=== PATIENT | female | born 1965 | race Caucasian/White ===

== ENCOUNTER 2024-05-15 10:19 | Outpatient (AMB) | payer BC, SELFPAY ==
--- NOTE | 2024-05-15 10:22 | A.OFFPC_ITS ---
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 Anxiety-she has seen a therapist in the past. On lorazepam 0.5 mg twice daily, received 56 tablets for 28 days. She states this is effective. She has not interested in other medications or therapy at this time. Insomnia-taking zolpidem 6.25 mg extended release. UDS is up-to-date as of 11/28/2023. Varicose veins- she had both legs done in 10/14/[address] Meneses. Patient has been evaluated at [facility] primary care in at the emergency department for palpitations and atypical chest pain. She had an ultrasound of the right upper quadrant at the emergency department on 03/11/2024 which was negative for cholelithiasis. She had a stress echo on 04/23/2024 which was normal. She also had an echocardiogram and Holter monitor that were unrevealing. Palpitations do not happen frequently. She has occasional episodes where she feels like her heart is beating faster, but when she is checked her watch it is normal. The pain is on the right side of her chest. She describes it as mild aching. Tums decrease his symptoms. She says it could be anxiety, but she is not sure. She does get indigestion so she stopped eating spicy foods. She wonders if this could be due to gallbladder. No nausea or vomiting. She tried Prilosec, but she says it did not alleviate symptoms. She does not get exertional symptoms or shortness of breath or dizziness. She is a nonsmoker. She has hyperlipidemia treated with atorvastatin. She also endorses a rash on the right breast for the past 6 months. It started as a small red spot. Now there are 2 patches of rash that are red, scaly and itchy. She is tried some [id number] oils and moisturizers without effect. Denies family history of breast cancer. Last screening mammogram up-to-date and without evidence of breast cancer. She denies palpable masses. 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 How often do you have a drink containing alcohol?: 2-4 times a month (once a week) 2. How many drinks containing alcohol do you have on a typical day when you are drinking?: 1 or 2 3. How often do you have six or more drinks on one occasion?: Never Total Score: 2 Physical exam (Primary Care) Vital Signs: Last Vital Signs Temp 98.8 F 05/15/24 10:31 Pulse 77 05/15/24 10:31 Resp 12 05/15/24 10:31 BP 98/58 L 05/15/24 10:31 Pulse Ox 99 05/15/24 10:31 Oxygen Delivery Method Room Air 05/15/24 10:31 BMI result Body Mass Index 23.3 Tobacco/Smoking Status: Tobacco use Status Tobacco use date assessed 05/15/24 05/15/24 10:31 Patient Tobacco Use Status Never used Tobacco 05/15/24 10:31 e-Cigarette/Vaping Use Never Used 05/15/24 10:31 Const Other: Constitutional: Alert, in no distress. Head: Normocephalic. Eyes: Pupils are equal, round and reactive to light. Extraocular muscles intact. Neck: Supple, Full range of motion. No lymphadenopathy. No palpable thyroid masses. Respiratory: Clear to auscultation. Cardiovascular: S1 S2 regular. No murmurs. Gastrointestinal: Abdomen soft, non-tender, non-distended. Normal bowel sounds. No palpable masses. Neurologic: No focal neurological deficits. Breast: No nipple inversion, axillary adenopathy or palpable masses of either breast. Skin: 3 cm annular erythematous scaly patch and 0.5 cm simliar patch on the inferior right breast. Extremities: Warm and well perfused. No clubbing, cyanosis or edema. Assessment and Plan Assessment & Plan (1) Anxiety: Code(s): F41.9 - Anxiety disorder, unspecified Plan: Stable. Continue current regimen. (2) Palpitations: Code(s): R00.2 - Palpitations Plan: Workup reassuring. May be attributed to stress, anxiety or dehydration. If symptoms worsen or become more frequent I will refer her to Cardiology. (3) Insomnia: Code(s): G47.00 - Insomnia, unspecified Qualifiers: Insomnia type: primary Qualified Code(s): F51.01 - Primary insomnia Plan: Stable. Continue zolpidem 6.25 mg controlled release. (4) Hyperlipidemia: Code(s): E78.5 - Hyperlipidemia, unspecified Qualifiers: Hyperlipidemia type: pure hypercholesterolemia Qualified Code(s): E78.00 - Pure hypercholesterolemia, unspecified Plan: Continue atorvastatin. Check lipid profile. Lifestyle modifications reviewed. (5) Atypical chest pain: Code(s): R07.89 - Other chest pain Plan: Cardiac workup including stress echo, echo, Holter monitor benign. Symptoms nonexertional and are atypical. Could be related to dyspepsia/GERD. We will order H pylori stool antigen testing. Warning signs warranting ER evaluation reviewed. If this is negative consider referral to gastro. (6) Abnormal breast exam: Code(s): N64.59 - Other signs and symptoms in breast Plan: Breast rash on exam that started about 6 months ago. She says her screening mammogram was last fall. Order diagnostic bilateral mammogram and breast ultrasound for further evaluation. Trial of topical Lotrisone. Orders: Orders MM diagnostic mammo BI Today N64.59 - Other signs and symptoms in breast Lipid Panel Today E78.5 - Hyperlipidemia, unspecified, R00.2 - Palpitations, R07.89 - Other chest pain TSH reflex Free T4 Today E66.9 - Obesity, unspecified, E78.5 - Hyperlipidemia, unspecified, R00.2 - Palpitations, R07.89 - Other chest pain Comprehensive Met. Panel Today E78.5 - Hyperlipidemia, unspecified, R00.2 - Palpitations, R07.89 - Other chest pain Complete Blood Count no Diff Today E78.5 - Hyperlipidemia, unspecified, R00.2 - Palpitations, R07.89 - Other chest pain US breast RT limited Today N64.59 - Other signs and symptoms in breast H pylori Ag Stool Today R07.89 - Other chest pain Medications: New clotrimazole-betamethasone 1-0.05 % 1 appl topical BID 2 weeks 45 grams 0RF Coding Level of Care Code Est Pt Level 5 (97637) Complex EM visit Add On G2211 Diagnoses Anxiety F41.9 Palpitations R00.2 Primary insomnia F51.01 Insomnia type: primary Pure hypercholesterolemia E78.00 Hyperlipidemia type: pure hypercholesterolemia Atypical chest pain R07.89 Abnormal breast exam N64.59 Time Spent (min) 45 Comment 45 minutes spent reviewing records, updating the chart and coordinating treatment.
[2024-05-15 10:31] VITALS: BP 98/58; PULSE 77; RESP 12; TEMP 37.1; O2SAT 99; BMI 23.3
== END 2024-05-15 11:36 | disposition home or self-care (01) ==
PROVIDERS: PCP Internal Medicine; Visit Provider Physician Assistant Medical
DX: R00.2 Palpitations (principal); F41.9 Anxiety disorder, unspecified; F51.01 Primary insomnia; E78.00 Pure hypercholesterolemia, unspecified; R07.89 Other chest pain; N64.59 Other signs and symptoms in breast
CPT/HCPCS: 99215

== ENCOUNTER 2024-07-13 07:31 | Outpatient (REF) | payer BC, SELFPAY ==
[2024-07-13 11:51] LABS: Hemoglobin 12.9 g/dl (12.0-16.0); Mean Corpuscular HGB Conc 33.1 g/dl (31.0-35.0); Mean Corpuscular Hemoglobin 28.8 pg (27.0-33.0); Mean Corpuscular Volume 87.1 fL (80.0-98.0); Mean Platelet Volume 10.7 fL (9.4-12.3); Platelet Count 228 X10*3/uL (160-400); Red Blood Count 4.48 X10*6/uL (4.20-5.50); Red Cell Distribution Width 13.9 % (11.0-16.0); White Blood Count 5.5 X10*3/uL (4.8-10.8)
[2024-07-13 12:19] LABS: Alanine Aminotransferase 45 U/L (0-31); Albumin Level 4.3 g/dL (3.5-5.0); Alkaline Phosphatase 69 U/L (39-117); Anion Gap 13 (12-20); Aspartate Amino Transferase 49 U/L (5-31); Bilirubin Total 1.4 mg/dL (0.0-1.0); Blood Urea Nitrogen 13 mg/dL (9-16); Calcium 9.8 mg/dL (8.4-10.2); Carbon Dioxide 27 mmol/L (22-29); Chloride 104 mmol/L (96-108); Cholesterol 204 mg/dL (<200); Estimated Glomerular Filt Rate > 60; Glucose Random 92 mg/dL (60-115); HDL Cholesterol 58 mg/dL (>40); LDL Cholesterol Calculated 97 mg/dL (<100); Potassium 3.9 mmol/L (3.3-5.1); Sodium 140 mmol/L (135-145); Total Protein 7.4 g/dL (6.5-8.0); Triglycerides 245 mg/dL (<150)
[2024-07-13 12:23] LABS: TSH reflex Free T4 1.16 uIU/mL (0.32-4.0)
== END 2024-07-13 07:32 | disposition home or self-care (01) ==
LOC: HO.WFDLDS 07:31
PROVIDERS: Visit Provider Physician Assistant Medical
DX: R07.89 Other chest pain (principal); R00.2 Palpitations; E78.5 Hyperlipidemia, unspecified; E66.9 Obesity, unspecified; R10.2 Pelvic and perineal pain
CPT/HCPCS: 36415; 80053; 80061; 84443; 85027; 87086

== ENCOUNTER 2024-07-13 13:40 | Outpatient (AMB) | payer BC, SELFPAY ==
--- NOTE | 2024-07-13 13:42 | A.OFFPC_ITS ---
Vital Signs 07/13/24 13:48 Height 5 ft 1.18 in Weight 128 lb 8 oz BMI 24.1 BP 108/78 Blood Pressure Location Rt brachial Position Sitting Pulse 70 Pulse Source Pulse Oximeter Temp 98.1 F Temp Source Oral Pulse Oximetry (%) 99 Oxygen Delivery Method Room Air Intake Visit Reasons: Left sided pain Intake Note: Left sided pain. Allergies doxycline Allergy (Severe, Uncoded 07/13/24 13:47) flushed Tobacco use date assessed: 05/15/24 Dental Screening Dental Screen Date: 05/15/24 HPI HPI Comments History of Present Illness Details This is a 58-year-old female with a past medical history of palpitations, atypical chest pain, hyperlipidemia, insomnia and anxiety presenting for back pain. She endorses left low back x 1 month. Reproducible with flexion, twisting, laying supine. It is 10/10 at worst. Better with heat. Resolves temporarily with Ibuprofen. No trauma. The patient had blood work done today. CBC, electrolytes, renal function, glucose normal. Total bilirubin, AST and ALT elevated at 1.4, 49 and 45 respectively. Started Atorvastatin just over 3 months ago. No right sided abdominal pain, nausea or vomiting. No history of liver disease. Alkaline phos within normal limits. LDL 97, total cholesterol 204, triglycerides 245, HDL 58. TSH normal. H pylori stool testing still pending. She has the kit now. I ordered diagnostic breast imaging at her last visit due to an ongoing rash (see prior note). The orders were sent to [facility] per her request. She will call to schedule. Still has breast rash. He denies urinary frequency, hematuria and dysuria. Urine dip +leuks and +protein.. She has occasional pelvic pressure. ROS: Constitutional: No unexplained weight loss, fever, chills, fatigue or night sweats. Respiratory: No shortness of breath Cardiovascular: No chest pain Gastrointestinal: No anorexia, nausea, vomiting or diarrhea. Genitourinary: No dysuria, hematuria, urinary frequency. Neurologic: No headache, dizziness, syncope Skin: No rash Physical exam: Constitutional: Alert, in no distress. Head: Normocephalic. Eyes: Anicteric Neck: Supple, Full range of motion. No lymphadenopathy. Respiratory: Clear to auscultation. Cardiovascular: S1 S2 regular. No murmurs Gastrointestinal: Abdomen soft, non-tender, non-distended. Normal bowel sounds. No palpable masses. No rebound or guarding. Genitourinary: No costovertebral angle tenderness. Skin: No rashes or lesions. Musculoskeletal: Right sided lumbosacral pain reproduced with flexion, twisting and right lateral bending. No midline spinal tenderness. No palpable masses. Normal gait. Negative straight leg raises. Symmetric lower extremity reflexes. Extremities: Warm and well perfused. No clubbing, cyanosis or edema. 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 Current occupational exposures/hazards: No Cognitive needs: No Hearing needs: No Vision needs: Yes (glasses) Physical exam (Primary Care) Vital Signs: Last Vital Signs Temp 98.1 F 07/13/24 13:48 Pulse 70 07/13/24 13:48 BP 108/78 07/13/24 13:48 Pulse Ox 99 07/13/24 13:48 Oxygen Delivery Method Room Air 07/13/24 13:48 BMI result Body Mass Index 24.1 Tobacco/Smoking Status: Tobacco use Status Tobacco use date assessed 05/15/24 07/13/24 13:43 Patient Tobacco Use Status Never used Tobacco 07/13/24 13:43 e-Cigarette/Vaping Use Never Used 07/13/24 13:43 Results AMB Urinalysis Dipstick UR Leukocytes Medium Last Edit by Sybil Payne CMA on 07/13/24 14:01 UR Nitrite Negative Last Edit by Sybil Payen CMA on 07/13/24 14:01 UR Urobilinogen Normal Last Edit by Sybil Payne CMA on 07/13/24 14:01 UR Protein Trace Last Edit by Sybil Payne CMA on 07/13/24 14:01 UR Ph 6.0 Last Edit by Sybil Payne CMA on 07/13/24 14:01 UR Blood Negative Last Edit by Sybil Payne CMA on 07/13/24 14:01 UR Specific Francisco 1.015 Last Edit by Sybil Payne CMA on 07/13/24 14: 01 UR Ketone Negative Last Edit by Sybil Payne CMA on 07/13/24 14:01 UR Bilirubin Negative Last Edit by Sybil Payne CMA on 07/13/24 14:01 UR Glucose Negative Last Edit by Sybil Payne CMA on 07/13/24 14:01 Results Reviewed Results Reviewed: Laboratory Last Values Urine pH (Clinic) 6.0 07/13/24 13:52 Specific Francisco (Clinic) 1.015 07/13/24 13:52 Ur Protein (Clinic) Trace 07/13/24 13:52 Ur Ketones (Clinic) Negative 07/13/24 13:52 Urine Blood (Clinic) Negative 07/13/24 13:52 Urine Nitrite Negative 07/13/24 13:52 Urine Bilirubin (Clinic) Negative 07/13/24 13:52 Urobilinogen (Clinic) Normal 07/13/24 13:52 Leukocyte Esterase (Clinic) Medium 07/13/24 13:52 Urine Glucose (Clinic) Negative 07/13/24 13:52 Assessment and Plan Assessment & Plan (1) Right low back pain: Code(s): M54.50 - Low back pain, unspecified Qualifiers: Chronicity: acute Sciatica presence: without sciatica Qualified Code(s): M54.50 - Low back pain, unspecified Plan: The pain is reproducible on exam. This is likely musculoskeletal in nature. No neurologic red flags. No symptoms aside from occasional pelvic pressure. Urine dip equivocal. Sent for culture. Warning signs warranting ER evaluation reviewed. Trial of cyclobenzaprine 5-10 mg nightly with ibuprofen 600 mg every 8 hours. Caution muscle relaxant can be sedating and cause drowsiness. She should not drive or operate heavy machinery when she takes it. Side effects of ibuprofen reviewed. Take with food. If symptoms persist we can proceed with x-ray of lumbar spine and SI joint. (2) Abnormal breast exam: Code(s): N64.59 - Other signs and symptoms in breast Plan: Patient will call [facility] to schedule diagnostic imaging. (3) Hyperlipidemia: Code(s): E78.5 - Hyperlipidemia, unspecified Qualifiers: Hyperlipidemia type: pure hypercholesterolemia Qualified Code(s): E78.00 - Pure hypercholesterolemia, unspecified Plan: Patient will hold atorvastatin due to elevated LFTs which is new since starting medication. Continue lifestyle modifications for hyperlipidemia. Repeat labs in 1 months time. (4) Elevated LFTs: Code(s): R79.89 - Other specified abnormal findings of blood chemistry Plan: If LFTs do not normalize after stopping statin will proceed with testing for hepatitis and possibly abdominal imaging. Plan Follow-up in 5 weeks to review labs. She will have fasting lipid profile and LFTs drawn prior to this appointment. Orders: Orders AMB Urinalysis Dipstick 07/13/24 M54.9 - Dorsalgia, unspecified, R39.89 - Other symptoms and signs involving the genitourinary system Urine Culture 07/13/24 R10.2 - Pelvic and perineal pain Lipid Panel 07/13/24 E78.00 - Pure hypercholesterolemia, unspecified, R79.89 - Other specified abnormal findings of blood chemistry Liver Panel 07/13/24 E78.00 - Pure hypercholesterolemia, unspecified, R79.89 - Other specified abnormal findings of blood chemistry Medications: New cyclobenzaprine Can increase to 10 mg at bedtime if needed. 5 mg PO BEDTIME PRN 14 tabs 0RF muscle spasm ibuprofen 600 mg PO Q8H 7 days PRN 21 tabs 0RF pain Coding Level of Care Code Est Pt Level 4 (02925) Complex EM visit Add On G2211 Diagnoses Acute right-sided low back pain without sciatica M54.50 Chronicity: acute Sciatica presence: without sciatica Abnormal breast exam N64.59 Pure hypercholesterolemia E78.00 Hyperlipidemia type: pure hypercholesterolemia Elevated LFTs R79.89
[2024-07-13 13:48] VITALS: BP 108/78; PULSE 70; TEMP 36.7; O2SAT 99; BMI 24.1
== END 2024-07-13 14:23 | disposition home or self-care (01) ==
PROVIDERS: PCP Internal Medicine; Visit Provider Physician Assistant Medical
DX: R39.89 Other symptoms and signs involving the genitourinary system (principal); M54.9 Dorsalgia, unspecified
CPT/HCPCS: 81002; 99214

== ENCOUNTER 2024-11-12 08:25 | Outpatient (AMB) | payer BC, SELFPAY ==
--- NOTE | 2024-11-12 08:28 | A.OFFPC_ITS ---
Vital Signs 11/12/24 08:32 Height 5 ft 1.18 in Weight 130 lb 6 oz BMI 24.5 BP 98/68 Blood Pressure Location Rt brachial Position Sitting Respiration 12 Pulse 66 Pulse Source Pulse Oximeter Pulse Oximetry (%) 98 Oxygen Delivery Method Room Air Intake Visit Reasons: CPE Intake Note: cpe [place] Monitoring Technician Required: No Allergies doxycline Allergy (Severe, Uncoded 07/13/24 13:47) flushed Tobacco use date assessed: 05/15/24 Dental Screening Dental Screen Date: 11/12/24 Did you have a dental visit in the last 12 months?: Yes Did you have a dental problem in the last 6 months where you did not have access to dental care?: No Was dental information given to patient?: Patient has dentist HPI HPI Comments History of Present Illness Details This is a 58-year-old female with a past medical history of palpitatio ns, atypical chest pain, hyperlipidemia, insomnia and anxiety presenting for a physical exam. The patient discontinued atorvastatin in June due elevated liver enzymes (total bilirubin, AST and ALT elevated at 1.4, 49 and 45 respectively). She has started the medication just over 3 months prior to labs.. No right sided abdominal pain, nausea or vomiting. No history of liver disease. Alkaline phos within normal limits. She was instructed to return to the lab in a month, but she did not complete the follow up tests yet. Last LDL 97, total cholesterol 204, triglycerides 245, HDL 58. TSH normal.. I ordered diagnostic breast imaging at her last visit due to an ongoing rash (see prior note). Patient reports she had a completed at [place], and they said it was normal and to continue annual mammogram. The rash resolved. The patient will schedule an appointment with Gynecology for an annual exam. She reports having a colonoscopy wit Dr. Page at [facility] June 2023 that was normal. She has them every 5 years due to family history. She takes lorazepam 0.5 mg twice daily for anxiety. Patient says in the past she has tried alternatives. She believes menopause may be causing some issues with sleep dysfunction. She wakes up frequently during the night. She was on zolpidem which worked, but she discontinued it due to concerns about potential risk for memory and cognitive impairment in the future. She was wondering if she should increase lorazepam, but I advised against this for the same reason. She exercises and eats healthy. She minimize his caffeine. She does not drink alcohol frequently. She had a negative cardiac workup while at [facility] for palpitations which included a stress test and Holter monitor and echocardiogram. She gets them intermittently, but they have not worsened. She also attributes this to anxiety and menopause. No dizziness, syncope, shortness of breath or chest pain. Her BMI is normal, but she has gained about 10-15 pounds and despite lifestyle modifications she has not been able to lose it. She wants to try a low-dose of weight loss medication to help with this. She is very frustrated. She declines influenza vaccine. ROS: Constitutional: No unexplained weight loss, fever, chills or night sweats. Eyes: No vision changes, blurry vision, double vision, eye pain, eye redness, eye discharge. ENT: No hearing loss, sneezing, congestion, runny nose or sore throat. Respiratory: No shortness of breath, cough or sputum production. Cardiovascular: No chest pain, chest pressure or chest discomfort. Gastrointestinal: No anorexia, nausea, vomiting or diarrhea. No abdominal pain or blood in stool. Genitourinary: No dysuria, hematuria, urinary frequency. Neurologic: No headache, dizziness, syncope, unilateral weakness, ataxia, numbness or tingling in the extremities. Musculoskeletal: No joint swelling. She gets muscle aches in her shoulders sometimes. Hematologic/Lymphatics: No bleeding or bruising. Skin: No rash Endocrine: No cold or heat intolerance. No polyuria or polydipsia. Psychiatric: No depression.. No SI/HI. Physical exam: Constitutional: Alert, in no distress. Head: Normocephalic. Eyes: Pupils are equal, round and reactive to light. Extraocular muscles intact. Ear, Nose and Throat: Canals clear. TMs normal. Normal nasal mucosa. No nasal discharge. No oral lesions. Neck: Supple, Full range of motion. No lymphadenopathy. No palpable thyroid masses. Respiratory: Clear to auscultation. Cardiovascular: S1 S2 regular. No murmurs. Gastrointestinal: Abdomen soft, non-tender, non-distended. Normal bowel sounds. No palpable masses. Neurologic: No focal neurological deficits. Symmetric patellar reflexes. Moves all extremities spontaneously. Sensation intact bilaterally. Skin: No rashes or lesions. Musculoskeletal: No gross deformities. Normal range of motion. Extremities: Warm and well perfused. No clubbing, cyanosis or edema. 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 1. Little interest or pleasure in doing things: not at all 2. Feeling down, depressed, or hopeless: not at all 3. Trouble falling or staying asleep, or sleeping too much: not at all 4. Feeling tired or having little energy: not at all 5. Poor appetite or overeating: not at all 6. Feeling bad about yourself - or that you are a failure or have let yourself or your family down: not at all 7. Trouble concentrating on things, such as reading the newspaper or watching television: not at all 8. Moving or speaking so slowly that other people could have noticed. Or the opposite - being so fidgety or restless that you have been moving around a lot more than usual: not at all 9. Thoughts that you would be better off or of hurting yourself in some way: not at all Total score: 0 31905 - PHQ-9 Billing: Yes Source: Developed by Drs. Shravan Glass, Anita Valadez, Jeremy Dyson and colleagues, with an educational mike from [employer]. Thrive Questionnaire Date Thrive assessed: 11/12/24 I am a: Patient What is your living situation today?: I choose not to answer this question Within the past 12 months, did the food you bought not last and you didn't have the money to get more?: I choose not to answer this question Within the past 12 months, did you worry whether your food would run out before you got money to buy more?: I choose not to answer this question Do you have trouble paying for medicines?: No Do you have trouble getting transportation to medical appointments?: No Do you have trouble paying your heating and electricity bill?: No Do you have trouble taking care of your child, family member or friend?: No Do you have trouble with day-to-day activities such as bathing, preparing meals, shopping, managing finances, etc.?: No Are you currently unemployed and looking for a job?: Yes Are you interested in more education?: Yes Please select the resources that you would like help with: None Currently or been in a relationship where the following occur: I choose not to answer THRIVE Score: 0 AUDIT C Alcohol Use Questionnaire (AUDIT-C) 1. How often do you have a drink containing alcohol?: Never Total Score: 0 MARY-7 AMB Questionnaire MARY-7 Date MARY - 7 assessed: 11/12/24 Feeling nervous, anxious, or on edge: 1 = Several days Not being able to stop or control worryin = More than half the days Worrying too much about different things: 1 = Several days Trouble relaxin = Several days Being so restless that it is hard to sit still: 0 = Not at all Becoming easily annoyed or irritable: 0 = Not at all Feeling afraid as if something awful might happen: 0 = Not at all Total MARY-7 score (0-4 normal; 5-9 mild; 10-14 moderate; 15-21 severe): 5 Source: Developed by Drs. Shravan Glass, Anita Valadez, Jeremy Dyson and colleagues, with an educational mike from [employer]. MARY-7 Assessment Billing MARY-7 Assessment Tool: MARY-7 Assessment 22855 Physical exam (Primary Care) Vital Signs: Last Vital Signs Pulse 66 11/12/24 08:32 Resp 12 11/12/24 08:32 BP 98/68 11/12/24 08:32 Pulse Ox 98 11/12/24 08:32 Oxygen Delivery Method Room Air 11/12/24 08:32 BMI result Body Mass Index 24.5 Tobacco/Smoking Status: Tobacco use Status Tobacco use date assessed 05/15/24 11/12/24 08:29 Patient Tobacco Use Status Never used Tobacco 11/12/24 08:29 e-Cigarette/Vaping Use Never Used 11/12/24 08:29 PHQ-9: PHQ-9 Score PHQ-9: Total score 0 11/12/24 08:41 Thrive Assessment: Date of Thrive Assessment Date Thrive assessed 11/12/24 11/12/24 08:29 Currently or been in a relationship where the following occur: I choose not to answer Coding Level of Care Code Est Pt Level 3 (15359) Est Pt Prev Care 40-64y(83495) Diagnoses Routine physical examination Z00.00 Primary insomnia F51.01 Insomnia type: primary Anxiety F41.9 Pure hypercholesterolemia E78.00 Hyperlipidemia type: pure hypercholesterolemia Elevated LFTs R79.89 Weight gain R63.5 Additional Codes MARY-7 Assessment Billing - MARY-7 Assessment Tool: MARY-7 Assessment 22233 ([id number]) PHQ-9 - 85800 - PHQ-9 Billing: Yes ([id number]) Assessment & Plan Assessment & Plan (1) Routine physical examination: Code(s): Z00.00 - Encounter for general adult medical examination without abnormal findings Category: Medical Plan: Patient is seen today for a routine physical. As part of this visit we reviewed the following issues, which are considered and essential part of preventative health in this age group: - Breast Cancer screening - Annual Weight Engineer exam - Screening for colon cancer - Blood pressure screening - Cholesterol screening - Osteoporosis prevention including calcium/vitamin D intake, weight bearing exercise & smoking cessation - Nutritional and exercise counseling - Counseling of injury prevention including fire prevention, smoke alarms and seat belt usage - Screening for depression - Education about skin cancer - patient saw Dermatology for a skin exam - Recommendations about immunizations - Recommendation of an eye exam - Screening for substance abuse (2) Insomnia: Code(s): G47.00 - Insomnia, unspecified Category: Medical Qualifiers: Insomnia type: primary Qualified Code(s): F51.01 - Primary insomnia Plan: Sleep hygiene reviewed. Advised against increasing benzodiazepine. Trial of trazodone. Reviewed side effects and administration. Do not drive or operate heavy machinery with this medication. (3) Anxiety: Code(s): F41.9 - Anxiety disorder, unspecified Category: Medical Plan: We discussed risks of long-term use of benzodiazepines. She declines trying SSRI or SNRI to decrease benzodiazepine dose at this time due to her sleep issues. (4) Hyperlipidemia: Code(s): E78.5 - Hyperlipidemia, unspecified Category: Medical Qualifiers: Hyperlipidemia type: pure hypercholesterolemia Qualified Code(s): E78.00 - Pure hypercholesterolemia, unspecified Plan: She is taking a fiber supplement. Recheck lipid profile. (5) Elevated LFTs: Code(s): R79.89 - Other specified abnormal findings of blood chemistry Category: Medical Plan: If elevated LFTs persist despite stopping statin we will proceed with the additional lab evaluation and ultrasound of the liver with elastography. (6) Weight gain: Code(s): R63.5 - Abnormal weight gain Category: Medical Plan: Patient is at upper limit normal of BMI and does not feel well at her current weight after gaining 10-15 lb. Lifestyle modifications have been unsuccessful. Advised patient we can try to send Zepbound, but insurance is not likely to approve it. She understands. Denies contraindications to GLP 1. Adverse reactions and potential side effects reviewed with the patient. Discussed FDA is investigating link between these medications and increased depression/suicidal thoughts. I also gave her information on the right BMI yara. Plan Follow up in 3 months. Medications: New trazodone 50 mg PO BEDTIME PRN 90 tabs 0RF sleep tirzepatide (weight loss) (Zepbound) for 4 weeks 2.5 mg (0.5 mL) subcut QWEEK 2 mL 0RF Patient Instructions: [email or web address] (handout given) Reminders: Watch all video tutorials, read all text messages and click on any features hidden messages to understand the yara better. Accurately enter your weight in pounds and height in feet and inches. Accurately?select what time you wake up and sleep and be careful to select am/pm properly. Save your username and password somewhere. The yara meets all HIPAA requirements. You must select shakes or bars or both and in the following?pages a specific brand. If you don't select a brand, the plan won't be accurate. You can use a regular?scale but buying the $23 CEDU scale from [employer] is recommended. For any issues you can hit technical support. If you take anti-diabetic and/or anti-hypertensive medications you must monitor blood sugars and blood pressure and alert the office if blood sugars are below 90 and blood pressures are below 110/60 so we can adjust medications if appropriate. The yara will send you automatic?reminders to do that if you enter in the yara that you have diabetes and/or hypertension and take medications for these conditions.
[2024-11-12 08:32] VITALS: BP 98/68; PULSE 66; RESP 12; O2SAT 98; BMI 24.5
== END 2024-11-12 09:16 | disposition home or self-care (01) ==
PROVIDERS: PCP Physician Assistant Medical; Visit Provider Physician Assistant Medical
DX: Z00.00 Encounter for general adult medical examination without abnormal findings (principal); F51.01 Primary insomnia; F41.9 Anxiety disorder, unspecified; E78.00 Pure hypercholesterolemia, unspecified; R63.5 Abnormal weight gain

== ENCOUNTER 2025-02-18 09:01 | Outpatient (AMB) | payer BC, SELFPAY ==
--- NOTE | 2025-02-18 09:04 | A.OFFPC_ITS ---
Vital Signs 02/18/25 09:07 Height 5 ft 1.18 in Weight 126 lb 8 oz BMI 23.8 BP 98/66 Blood Pressure Location Rt brachial Position Sitting Respiration 12 Pulse 88 Pulse Source Pulse Oximeter Temp 97.1 F Temp Source Oral Pulse Oximetry (%) 99 Oxygen Delivery Method Room Air Intake Visit Reasons: med review Intake Note: follow up on med review [facility] Required: No Allergies doxycline Allergy (Severe, Uncoded 02/18/25 09:05) Hives Tobacco use date assessed: 02/18/25 Dental Screening Dental Screen Date: 02/18/25 Did you have a dental visit in the last 12 months?: Yes Did you have a dental problem in the last 6 months where you did not have access to dental care?: No Was dental information given to patient?: Patient has dentist HPI HPI Comments History of Present Illness Details This is a 59-year-old female with a past medical history of palpitations, atypical chest pain, hyperlipidemia, insomnia and anxiety presenting for follow up. The patient discontinued atorvastatin in June due elevated liver enzymes (total bilirubin, AST and ALT elevated at 1.4, 49 and 45 respectively). She has started the medication just over 3 months prior to labs.. No right sided abdominal pain, nausea or vomiting. No history of liver disease. Alkaline phos within normal limits. She was instructed to return to the lab in a month, but she did not complete the follow up tests yet. Last LDL 97, total cholesterol 204, triglycerides 245, HDL 58. TSH normal. She reports having a colonoscopy wit Dr. Page at [facility] June 2023 that was normal. She has them every 5 years due to family history. She takes lorazepam 0.5 mg twice daily for anxiety. Patient says in the past she has tried alternatives. She believes menopause may be causing some issues with sleep dysfunction. She wakes up frequently during the night. She was on zolpidem which worked, but she discontinued it due to concerns about potential risk for memory and cognitive impairment in the future. She tried trazodone, but it made her feel very groggy in the morning. She switched back to zolpidem, but then she felt more palpitations so she stopped that a week ago, and palpitations resolved. She exercises and eats healthy. She minimize his caffeine. She does not drink alcohol frequently. Her PHQ-9 is positive. Patient says depression symptoms are mild. She has marital dysfunction. She is open to counseling. She had a negative cardiac workup while at [facility] for palpitations and atypical chest pain which included a stress test and Holter monitor and echocardiogram. She gets them intermittently, but they have not worsened. She also attributes this to anxiety and menopause. No dizziness, syncope, shortness of breath or chest pain. She declines influenza vaccine. ROS: Constitutional: No unexplained weight loss, fever, chills or night sweats. Respiratory: No shortness of breath, cough or sputum production. Cardiovascular: No chest pain. See HPI Gastrointestinal: No anorexia, nausea, vomiting or diarrhea. No abdominal pain or blood in stool. Genitourinary: No dysuria, hematuria, urinary frequency. Neurologic: No headache, dizziness, syncope, unilateral weakness, ataxia, numbness or tingling in the extremities. Hematologic/Lymphatics: No bleeding or bruising. Skin: No rash Endocrine: No cold or heat intolerance. No polyuria or polydipsia. Psychiatric: See HPI Physical exam: Constitutional: Alert, in no distress. Eyes: Pupils are equal, round and reactive to light. Extraocular muscles intact. Neck: Supple, Full range of motion. No lymphadenopathy. No palpable thyroid masses. Respiratory: Clear to auscultation. Cardiovascular: S1 S2 regular. No murmurs. Gastrointestinal: Abdomen soft, non-tender, non-distended. Normal bowel sounds. No palpable masses. Extremities: Warm and well perfused. No clubbing, cyanosis or edema. 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 1. Little interest or pleasure in doing things: not at all 2. Feeling down, depressed, or hopeless: not at all 3. Trouble falling or staying asleep, or sleeping too much: nearly every day 4. Feeling tired or having little energy: more than half the days 5. Poor appetite or overeating: several days 6. Feeling bad about yourself - or that you are a failure or have let yourself or your family down: not at all 7. Trouble concentrating on things, such as reading the newspaper or watching television: several days 8. Moving or speaking so slowly that other people could have noticed. Or the opposite - being so fidgety or restless that you have been moving around a lot more than usual: not at all 9. Thoughts that you would be better off or of hurting yourself in some way: not at all Total score: 7 Depression Screening Interpretation: Positive Depression Screening Follow-up: New Medication prescribed and Other (Refer to counseling) Depression Screening Done: Yes 72099 - PHQ-9 Billing: Yes Source: Developed by Drs. Shravan Glass, Anita Valadez, Jeremy Dyson and colleagues, with an educational mike from [employer]. Thrive Questionnaire Date Thrive assessed: 02/18/25 I am a: Patient What is your living situation today?: I have a steady place to live Within the past 12 months, did the food you bought not last and you didn't have the money to get more?: Never true Within the past 12 months, did you worry whether your food would run out before you got money to buy more?: Never true Do you have trouble paying for medicines?: No Do you have trouble getting transportation to medical appointments?: No Do you have trouble paying your heating and electricity bill?: Yes Do you have trouble taking care of your child, family member or friend?: No Do you have trouble with day-to-day activities such as bathing, preparing meals, shopping, managing finances, etc.?: No Are you currently unemployed and looking for a job?: No Are you interested in more education?: No Please select the resources that you would like help with: None Currently or been in a relationship where the following occur: I choose not to answer THRIVE Score: 1 AUDIT C Alcohol Use Questionnaire (AUDIT-C) 1. How often do you have a drink containing alcohol?: 2-4 times a month Total Score: 2 MARY-7 AMB Questionnaire MARY-7 Date MARY - 7 assessed: 02/18/25 Feeling nervous, anxious, or on edge: 0 = Not at all Not being able to stop or control worryin = Not at all Worrying too much about different things: 0 = Not at all Trouble relaxin = Not at all Being so restless that it is hard to sit still: 0 = Not at all Becoming easily annoyed or irritable: 0 = Not at all Feeling afraid as if something awful might happen: 0 = Not at all Total MARY-7 score (0-4 normal; 5-9 mild; 10-14 moderate; 15-21 severe): 0 Source: Developed by Drs. Shravan Glass, Anita Valadez, Jeremy Dyson and colleagues, with an educational mike from [employer]. MARY-7 Assessment Billing MARY-7 Assessment Tool: MARY-7 Assessment 33374 Physical exam (Primary Care) Vital Signs: Last Vital Signs Temp 97.1 F 02/18/25 09:07 Pulse 88 02/18/25 09:07 Resp 12 02/18/25 09:07 BP 98/66 02/18/25 09:07 Pulse Ox 99 02/18/25 09:07 Oxygen Delivery Method Room Air 02/18/25 09:07 BMI result Body Mass Index 23.8 Tobacco/Smoking Status: Tobacco use Status Tobacco use date assessed 02/18/25 02/18/25 09:09 Patient Tobacco Use Status Never used Tobacco 02/18/25 09:09 e-Cigarette/Vaping Use Never Used 02/18/25 09:09 PHQ-9: PHQ-9 Score PHQ-9: Total score 7 02/18/25 09:43 Depression Screening Interpretation: Positive Depression Screening Follow-up: New Medication prescribed and Other (Refer to counseling) Thrive Assessment: Date of Thrive Assessment Date Thrive assessed 02/18/25 02/18/25 09:09 Currently or been in a relationship where the following occur: I choose not to answer Coding Level of Care Code Est Pt Level 4 (99356) Complex EM visit Add On G2211 Diagnoses Primary insomnia F51.01 Insomnia type: primary Anxiety F41.9 Pure hypercholesterolemia E78.00 Hyperlipidemia type: pure hypercholesterolemia Elevated LFTs R79.89 Additional Codes MARY-7 Assessment Billing - MARY-7 Assessment Tool: MARY-7 Assessment 98611 ([id number]) PHQ-9 - 91883 - PHQ-9 Billing: Yes ([id number]) Assessment & Plan Assessment & Plan (1) Insomnia: Code(s): G47.00 - Insomnia, unspecified Category: Medical Qualifiers: Insomnia type: primary Qualified Code(s): F51.01 - Primary insomnia Plan: Sleep hygiene reviewed. Previous medications include trazodone and zolpidem. Trial of hydroxyzine 25-50 mg at bedtime. Cautioned that could it causes sedation and drowsiness and may cause dizziness. Do not drive or operate heavy machinery with this medication. (2) Anxiety: Code(s): F41.9 - Anxiety disorder, unspecified Category: Medical Plan: We discussed risks of long-term use of benzodiazepines. She declines trying SSRI or SNRI to decrease benzodiazepine dose at this time due to her sleep issues. Depression screening positive today. Patient says she has marital dysfunction a nd is open to counseling. Referral placed. (3) Hyperlipidemia: Code(s): E78.5 - Hyperlipidemia, unspecified Category: Medical Qualifiers: Hyperlipidemia type: pure hypercholesterolemia Qualified Code(s): E78.00 - Pure hypercholesterolemia, unspecified Plan: She is taking a fiber supplement. Recheck lipid profile. (4) Elevated LFTs: Code(s): R79.89 - Other specified abnormal findings of blood chemistry Category: Medical Plan: If elevated LFTs persist despite stopping statin we will proceed with the additional lab evaluation and ultrasound of the liver with elastography. Plan Follow up in 6 months for a physical exam. Orders: Referrals Psychology Referral Z63.0 - Problems in relationship with spouse or partner Medications: New hydroxyzine HCl 25 - 50 mg (1 - 2 x 25 mg) PO BEDTIME 60 tabs 3RF Discontinued atorvastatin Discontinued Reason: Doctor's Order 10 mg PO DAILY 90 tabs 3RF tirzepatide (weight loss) (Zepbound) for 4 weeks Discontinued Reason: Doctor's Order 2.5 mg (0.5 mL) subcut QWEEK 2 mL 0RF zolpidem ER Discontinued Reason: Doctor's Order 6.25 mg PO BEDTIME PRN 30 tabs 2RF sleep
[2025-02-18 09:07] VITALS: BP 98/66; PULSE 88; RESP 12; TEMP 36.2; O2SAT 99; BMI 23.8
== END 2025-02-18 09:50 | disposition home or self-care (01) ==
LOC: HO.HMCFM 09:01
PROVIDERS: PCP Physician Assistant Medical; Visit Provider Physician Assistant Medical
DX: F51.01 Primary insomnia (principal); F41.9 Anxiety disorder, unspecified; E78.00 Pure hypercholesterolemia, unspecified; R79.89 Other specified abnormal findings of blood chemistry

== ENCOUNTER → 2025-02-18 09:01 | Outpatient (BNVA) | payer BC, SELFPAY | PROVIDERS: PCP Physician Assistant Medical; Visit Provider Physician Assistant Medical | DX: F41.9 Anxiety disorder, unspecified (principal); F51.01 Primary insomnia; E78.5 Hyperlipidemia, unspecified; E78.00 Pure hypercholesterolemia, unspecified; R79.89 Other specified abnormal findings of blood chemistry; Z63.0 Problems in relationship with spouse or partner | CPT/HCPCS: 96127 ==

== ENCOUNTER 2025-11-15 08:17 | Outpatient (AMB) | payer BC, SELFPAY ==
--- NOTE | 2025-11-15 08:20 | A.OFFPC_ITS ---
Vital Signs 11/15/25 08:36 Height 5 ft 1.18 in Weight 129 lb BMI 24.2 BP 100/68 Blood Pressure Location Rt brachial Position Sitting Respiration 13 Pulse 82 Pulse Source Pulse Oximeter Temp 98.1 F Temp Source Temporal Artery Scan Pulse Oximetry (%) 99 Oxygen Delivery Method Room Air Intake Visit Reasons: physical exam Intake Note: Darcy presents in the office today for her annual physical. Power Technician Required: No Is last menstrual period known: No Post menopausal: No Patient : No Allergies doxycline Allergy (Severe, Uncoded 11/15/25 08:32) Hives Tobacco use date assessed: 11/15/25 Dental Screening Dental Screen Date: 11/15/25 Did you have a dental visit in the last 12 months?: Yes Did you have a dental problem in the last 6 months where you did not have access to dental care?: No Was dental information given to patient?: Patient has dentist HPI HPI Comments History of Present Illness Details This is a 59-year-old female with a past medical history of palpitations, atypical chest pain, hyperlipidemia, insomnia and anxiety presenting for a physical exam. The patient discontinued atorvastatin in June 2024 due elevated liver enzymes. No right sided abdominal pain, nausea or vomiting. No history of liver disease. She has increased fiber. She follows a low-cholesterol diet. She had a negative cardiac workup while at [facility] for palpitations and atypical chest pain which included a stress test and Holter monitor and echocardiogram. She has a skin lesion between the breast for the past 6 months that gets itchy and irritated. Denies personal history of skin cancer. She did have a skin lesion removed from her right cheek at [facility] in the past. Last LDL 97, total cholesterol 204, triglycerides 245, HDL 58. TSH normal. She reports having a colonoscopy wit Dr. Page at [facility] June 2023 that was normal. She has them every 5 years due to family history. She takes lorazepam 0.5 mg twice daily for anxiety. She tried alternative medications in the past. Symptoms were exacerbated by menopause. She went to [facility], and she started progesterone and estradiol in July this year. She reports improved sleep and less irritability. She has not needed to use zolpidem since then. She had a mammogram on 03/11/2025 which showed no evidence of malignancy. Declines influenza vaccine. Reviewed COVID-19 vaccine, pneumonia vaccine recommendations. Patient thought she received tetanus vaccine at [facility]. Reviewed transfer record after appt and did not find a record of this so patient will be advised to have this done. ROS: Constitutional: No unexplained weight loss, fever, chills, increased fatigue or night sweats. Eyes: No vision changes, blurry vision, double vision, eye pain, eye redness, eye discharge. ENT: No hearing loss, sneezing, congestion, runny nose or sore throat. Respiratory: No shortness of breath, cough or sputum production. Cardiovascular: No chest pain, chest pressure or chest discomfort. No palpitations or pedal edema. Gastrointestinal: No anorexia, nausea, vomiting or diarrhea. No abdominal pain or blood in stool. Genitourinary: No dysuria, hematuria, urinary frequency. Neurologic: No headache, dizziness, syncope, unilateral weakness, ataxia, numbness or tingling in the extremities. Musculoskeletal: No muscle pain or joint swelling. Hematologic/Lymphatics: No bleeding or bruising. No painful lymph nodes. Skin: See HPI Endocrine: No cold or heat intolerance. No polyuria or polydipsia. Psychiatric: See HPI and PHQ-9. No SI/HI. Physical exam: Constitutional: Alert, in no distress. Head: Normocephalic. Eyes: Pupils are equal, round and reactive to light. Extraocular muscles intact. Ear, Nose and Throat: Canals clear. TMs normal. Normal nasal mucosa. No nasal discharge. No oral lesions. Neck: Supple, Full range of motion. No lymphadenopathy. No palpable thyroid masses. Respiratory: Clear to auscultation. Cardiovascular: S1 S2 regular. No murmurs. No carotid bruits. Gastrointestinal: Abdomen soft, non-tender, non-distended. Normal bowel sounds. No palpable masses. Neurologic: No focal neurological deficits. Symmetric patellar reflexes. Moves all extremities spontaneously. Sensation intact bilaterally. Skin: 3 mm, raised, irregular pink lesion on the chest. No bleeding or evidence of cellulitis. Musculoskeletal: No gross deformities. Normal range of motion. Extremities: Warm and well perfused. No clubbing, cyanosis or edema. Intact peripheral pulses bilaterally. Psychiatric: Normal mood and affect [facility] Medical History (Updated 11/15/25 @ 08:58 by JE Segundo) Neoplasm of skin Weight gain Routine physical examination Elevated LFTs Abnormal breast exam Atypical chest pain Palpitations Hyperlipidemia Varicose veins of bilateral lower extremities with pain Insomnia Anxiety Family History (Updated 11/15/25 @ 08:35 by Leeann Lowe CMA) Father FH: mental illness Depression Social History (Updated 11/15/25 @ 08:35 by Leeann Lowe CMA) Housing: House Alcohol intake: current Patient Tobacco Use Status: Never used Tobacco e-Cigarette/Vaping Use: Never Used Second Hand Smoke Exposure: No service: No Current occupational status: employed 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 1. Little interest or pleasure in doing things: not at all 2. Feeling down, depressed, or hopeless: not at all 3. Trouble falling or staying asleep, or sleeping too much: several days 4. Feeling tired or having little energy: several days 5. Poor appetite or overeating: several days 6. Feeling bad about yourself - or that you are a failure or have let yourself o r your family down: several days 7. Trouble concentrating on things, such as reading the newspaper or watching television: several days 8. Moving or speaking so slowly that other people could have noticed. Or the opposite - being so fidgety or restless that you have been moving around a lot more than usual: not at all 9. Thoughts that you would be better off or of hurting yourself in some way: not at all Total score: 5 Depression Screening Interpretation: Positive Depression Screening Follow-up: Existing condition and Other (Patient says this is better. We have discussed it in the past. She has coping strategies and does not need referral to behavioral health at this time.) Depression Screening Done: Yes 53228 - PHQ-9 Billing: Yes Source: Developed by Drs. Shravan Glass, Anita Valadez, Jeremy Dyson and colleagues, with an educational mike from [employer]. Thrive Questionnaire Date Thrive assessed: 02/18/25 Do you have trouble with day-to-day activities such as bathing, preparing meals, shopping, managing finances, etc.?: No Are you currently unemployed and looking for a job?: No Are you interested in more education?: No Please select the resources that you would like help with: None Currently or been in a relationship where the following occur: I choose not to answer THRIVE Score: 0 AUDIT C Alcohol Use Questionnaire (AUDIT-C) 1. How often do you have a drink containing alcohol?: Monthly or less 2. How many drinks containing alcohol do you have on a typical day when you are drinking?: 1 or 2 3. How often do you have six or more drinks on one occasion?: Never Total Score: 1 MARY-7 AMB Questionnaire MARY-7 Date MARY - 7 assessed: 11/15/25 Feeling nervous, anxious, or on edge: 1 = Several days Not being able to stop or control worryin = Several days Worrying too much about different things: 1 = Several days Trouble relaxin = Several days Being so restless that it is hard to sit still: 1 = Several days Becoming easily annoyed or irritable: 0 = Not at all Feeling afraid as if something awful might happen: 0 = Not at all Total MARY-7 score (0-4 normal; 5-9 mild; 10-14 moderate; 15-21 severe): 5 Source: Developed by Drs. Shravan Glass, Anita Valadez, Jeremy Dyson and colleagues, with an educational mike from [employer]. MARY-7 Assessment Billing MARY-7 Assessment Tool: MARY-7 Assessment 15508 Physical exam (Primary Care) Vital Signs: Last Vital Signs Temp 98.1 F 11/15/25 08:36 Pulse 82 11/15/25 08:36 Resp 13 11/15/25 08:36 BP 100/68 11/15/25 08:36 Pulse Ox 99 11/15/25 08:36 Oxygen Delivery Method Room Air 11/15/25 08:36 BMI result Body Mass Index 24.2 Tobacco/Smoking Status: Tobacco use Status Tobacco use date assessed 11/15/25 11/15/25 08:39 Patient Tobacco Use Status Never used Tobacco 11/15/25 08:35 e-Cigarette/Vaping Use Never Used 11/15/25 08:35 PHQ-9: PHQ-9 Score PHQ-9: Total score 5 11/15/25 09:08 Depression Screening Interpretation: Positive Depression Screening Follow-up: Existing condition and Other (Patient says this is better. We have discussed it in the past. She has coping strategies and does not need referral to behavioral health at this time.) Thrive Assessment: Date of Thrive Assessment Date Thrive assessed 02/18/25 11/15/25 08:22 Currently or been in a relationship where the following occur: I choose not to answer Coding Level of Care Code Est Pt Prev Care 40-64y(97320) Add On Preventative Visit Only Diagnoses Routine physical examination Z00.00 Anxiety F41.9 Pure hypercholesterolemia E78.00 Hyperlipidemia type: pure hypercholesterolemia Elevated LFTs R79.89 Neoplasm of skin D49.2 Additional Codes MARY-7 Assessment Billing - MARY-7 Assessment Tool: MARY-7 Assessment 47194 ([id number]) PHQ-9 - 24978 - PHQ-9 Billing: Yes ([id number]) Assessment & Plan Assessment & Plan (1) Routine physical examination: Code(s): Z00.00 - Encounter for general adult medical examination without abnormal findings Category: Medical Plan: Patient is seen today for a routine physical. As part of this visit we reviewed the following issues, which are considered and essential part of preventative health in this age group: - Breast Cancer screening - Annual Patient Support Partner exam - Screening for colon cancer - Blood pressure screening - Cholesterol screening - Osteoporosis prevention including calcium/vitamin D intake, weight bearing exercise & smoking cessation - Nutritional and exercise counseling - Counseling of injury prevention including fire prevention, smoke alarms and seat belt usage - Screening for depression - Education about skin cancer - Recommendations about immunizations - Recommendation of an eye exam (2) Anxiety: Code(s): F41.9 - Anxiety disorder, unspecified Category: Medical Plan: Stable. We have discussed alternative medications in the past and long-term use of benzodiazepines. Continue lorazepam 0.5 mg twice daily as needed for anxiet y. Do not drive or operate heavy machinery or drink alcohol with this medication. (3) Hyperlipidemia: Code(s): E78.5 - Hyperlipidemia, unspecified Category: Medical Qualifiers: Hyperlipidemia type: pure hypercholesterolemia Qualified Code(s): E78.00 - Pure hypercholesterolemia, unspecified Plan: Check fasting lipid profile. Can you lifestyle modifications. (4) Elevated LFTs: Code(s): R79.89 - Other specified abnormal findings of blood chemistry Category: Medical Plan: Check LFTs. (5) Neoplasm of skin: Code(s): D49.2 - Neoplasm of unspecified behavior of bone, soft tissue, and skin Category: Medical Plan: Refer to dermatology. Plan Follow up in 6 months for medication review. Orders: Orders Lipid Panel Today E78.5 - Hyperlipidemia, unspecified, F41.9 - Anxiety disorder, unspecified, R79.89 - Other specified abnormal findings of blood chemistry, Z00.00 - Encounter for general adult medical examination without abnormal findings TSH reflex Free T4 Today E78.00 - Pure hypercholesterolemia, unspecified, F41.9 - Anxiety disorder, unspecified, R79.89 - Other specified abnormal findings of blood chemistry, Z00.00 - Encounter for general adult medical examination without abnormal findings Urine Culture Today E78.00 - Pure hypercholesterolemia, unspecified, F41.9 - Anxiety disorder, unspecified, R39.9 - Unspecified symptoms and signs involving the genitourinary system, R79.89 - Other specified abnormal findings of blood chemistry, Z00.00 - Encounter for general adult medical examination without abnormal findings UA w Microscopic Today E78.00 - Pure hypercholesterolemia, unspecified, F41.9 - Anxiety disorder, unspecified, R39.9 - Unspecified symptoms and signs involving the genitourinary system, R79.89 - Other specified abnormal findings of blood chemistry, Z00.00 - Encounter for general adult medical examination without abnormal findings Comprehensive Met. Panel Today E78.00 - Pure hypercholesterolemia, unspecified, F41.9 - Anxiety disorder, unspecified, R79.89 - Other specified abnormal findings of blood chemistry, Z00.00 - Encounter for general adult medical examination without abnormal findings Vitamin D 25-OH (D2 and D3) Today E78.00 - Pure hypercholesterolemia, unspecified, F41.9 - Anxiety disorder, unspecified, R79.89 - Other specified abnormal findings of blood chemistry, Z00.00 - Encounter for general adult medical examination without abnormal findings Complete Blood Count no Diff Today E78.00 - Pure hypercholesterolemia, unspecified, F41.9 - Anxiety disorder, unspecified, R79.89 - Other specified abnormal findings of blood chemistry, Z00.00 - Encounter for general adult medical examination without abnormal findings Referrals Dermatology Referral D49.2 - Neoplasm of unspecified behavior of bone, soft tissue, and skin
--- OUTSIDE RECORDS SUMMARY | 2025-11-15 08:23 | XMS_ITS | Clinical Summary ---
Author Organization [facility] it Address [address] [place] [address] Care Team Providers Care Rn Maternity Name Role Phone Rosalia Gomez MD Primary Care Provider Surgical History Surgery Date Site/Laterality Comments OTHER SURGICAL HISTORY 03/20/2018 Left PROCEDURE: LA ENDOVEN ABLTJ INCMPTNT VEIN XTR RF 1ST VEIN; COMMENT: EVLT with with microphlebetomies COLONOSCOPY 06/12/2017 PROCEDURE: HISTORICAL COLONOSCOPY; COMMENT: Repeat 5 yrs Medical History Medical History Date Comments Anxiety DX:Anxiety; COMM ENT: trouble staying asleep Colon cancer screening 07/08/2017 DX:Colon cancer screening; COMMENT: [place] done 05/2017, due in 5 yrs Venous insufficiency 03/06/2019 DX:Venous i nsufficiency Back pain 08/27/2013 DX:Back pain Depression 09/11/2011 DX:Depression Insomnia 08/27/2013 DX:Insomnia Varicose vein 06/26/2011 DX:Varicose vein 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 pancr eatic Diabetes Mother pancreatic canc er Breast cancer Other cousin M&P&P Other cancer Other cousin M&P&P and bone cancer Other cancer Uncle melanoma Relation Name Status Comments Daughter 1 Alive Daughter 2 Alive Daughter 3 Alive Father Alive Maternal Grandfather Maternal Grandmother Mother Other cousin M&P&P Alive Paternal Grandfather Paternal Grandmother Sister Alive Uncle Social History Tobacco Use Types Packs/Day Years Used Date Smoking Tobacco: Never Smokeless Tobacco: Never Alcohol Use Standard Drinks/Week Comments Yes 0 (1 standard drink = 0.6 oz pur e alcohol) Comments Unknown Sex and Gender Information Value Date Recorded Sex Assigned at Not on file Legal Sex Female 11:45 AM EST Gender Identity Not on file Sexual Orientation Not on file Plan of Treatment Health Maintenance Due Date Last Done Comments DTaP,Tdap,and Td Vaccines (1 - Tdap) 1984 Hepatitis B Vaccines (1 of 3 - 19+ 3-dose series) 1984 Pneumococcal Vaccine: 50+ Years (1 of 1 - PCV) 2015 Zoster Vaccines (1 of 2) 2015 Breast Cancer Screening 11/21/2022 11/21/20 20, 09/14/2019, 09/11/2018, Additional history exists Cervical Cancer Screening: Pap Smear 05/11/2023 05/11/2020 Depression Screening 11/25/2024 COVID-19 Vaccine (2024- season) 2025 Influenza Vaccine (#1) 2025 RSV Immunization Adult Patients (1 - 1-dose 75+ series) 2040 HIB Vaccines Aged Out No longer eligi ble based on patient's age to complete this topic HPV Vaccines Aged Out No longer eligi ble based on patient's age to complete this topic Hepatitis A Vaccines Aged Out No long er eligible based on patient's age to complete this topic IPV Vaccines Aged Out No longer eligi ble based on patient's age to complete this topic MMR Vaccines Aged Out No longer eligi ble based on patient's age to complete this topic Meningococcal ACWY Vaccine Aged Out N o longer eligible based on patient's age to complete this topic Meningococcal B Vaccine Aged Out No l onger eligible based on patient's age to complete this topic RSV Immunization Patients Under 20 months Aged Out No longer eligible based on patient's age to complete this topic Varicella Vaccines Aged Out No longer eligible based on patient's age to complete this topic Procedures Procedure Name Priority Date/Time Associated Diagnosis Comments SCR MAMMO BI INCL CAD Routine 11/21/2020 4:04 PM EST Encounter for screening mammogram for malignant neoplasm of breast PAP SMEAR Routine 05/11/2020 from Last 3 Months or Most Recently Relevant to Health Maintenance Results * SCR MAMMO BI INCL CAD (11/21/2020 4:04 PM EST) Anatomical Region Laterality Modality Radiographic Consuelo ging 09/14/2019 3:03 PM EDT Narrative 11/22/2020 10:26 AM EST This is a summary report. The complete report is available in the patient's medical record. If you cannot access the medical record, please contact the sending organization for a detailed fax or copy. Full field digital screening mammography, reviewed with CAD and compared to previous mammograms dating back to 03/20/2014 with most recent of 09/14/2019. The breast tissue is heterogeneously dense, limiting sensitivity. No suspicious mass, architectural distortion or suspicious calcifications are identified. IMPRESSION: : Dense breast tissue, limiting the sensitivity of mammography. No mammographic evidence of malignancy. BIRADS 1-Negative; N. 5 year breast cancer risk assessment 1.2 % Lifetime breast cancer risk assessment 8.5 % Breast cancer risk category Low (<15%) Procedure Note Radhika Quezada MD - 11/13/2022 This is a summary report. The complete report is available in thepatient's medical record. If you cannot access the medical record, pleasecontact the sending organization for a detailed fax or copy. Full field digital screening mammography, reviewed with CAD and comparedto previous mammograms dating back to 03/20/2014 with most recent of09/14/2019. The breast tissue is heterogeneously dense, limitingsensitivity. No suspicious mass, architectural distortion or suspiciouscalcifications are identified. IMPRESSION: : Dense breast tissue, limiting the sensitivity of mammography. Nomammographic evidence of malignancy. BIRADS 1-Negative; N. 5 year breast cancer risk assessment 1.2 % Lifetime breast cancer risk assessment 8.5 % Breast cancer risk category Low (<15%) us Agnieszka Fountain MD IMG XR PROCEDURES Fi nal Result * Pap smear (05/11/2020) 05/11/2020 Narrative HISTORICAL TESTING LAB RESULTING AGENCY - 05/13/2020 4:26 PM EDT [id number] THINPREP PAP, IMAGED: NEGATIVE FOR SQUAMOUS INTRAEPITHELIAL LESION AND MALIGNANCY . TABITHA VALLES , ELAINE(ASCP) (CASE ELECTRONICALLY SIGNED 05 13 2020) RESULT OF APTIMA HIGH RISK HPV ASSAY: HIGH RISK HPV: NEGATIVE (SEROTYPES 16,18,31,33,35,39,45,51,52,56,58,59,66,68) COMPLETED ON 2020-05-13 ADEQUACY: SATISFACTORY ENDOCERVICAL/TRANSFORMATION ZONE COMPONENT PRESENT. SOURCE: THINPREP PAP HPV ANY DX: REFLEX 16 AND 18, CERVICAL, IMAGED CLINICAL INFORMATION: HPV ANY DIAGNOSIS. HORMONES, PAP HX NEG, Z12.4 Amarilis Shearer DO LAB CYTOLOGY ORDERABLES Final Result HISTORICAL TESTING LAB RESULTING AGENCY from Last 3 Months or Most Recently Relevant to Health Maintenance Care Teams Rn Maternity Relationship Specialty Start Date End Date Rosalia Gomez MD PCP - General Internal Medicine 05/23/21
--- OUTSIDE RECORDS SUMMARY | 2025-11-15 08:24 | XMS_ITS | Patient Health Record ---
Author Organization [facility] Address [address] [place] [address] Care Team Providers Care Maintenance Associate Name Role Phone BRET PENA PA-C Primary Care Provider MARCI Brar Unavailable [phone] Allergies Allergen (clinical drug ingredient) Drug/Non Drug Allergy documented on EMR Reaction Allergy Type Onset Date Status doxycycline Doxycycline rash Drug Allergy Act christopher Reason For Referral No Information Medications Medication SIG (Take, Route, Frequency, Duration) Notes Start Date End Date Status Estradiol 0.025 MG/24HR 1 patch to skin Transdermal Two times a Week prescribed by [facility] in [place] Active Progesterone 100 MG 1 capsule at bedtime Orally Once a day prescribed by [facility] in [place] Active LORazepam 0.5 MG 1 tablet at bedtime as needed Orally Once a day Active Zolpidem Tartrate Ac tive Social History Tobacco Use: Social History Observation Description Date Details (start date - stop date) Never Smoker NA - NA Sexual History Question Answer Notes Had sex in the past 12 months (vaginal, oral, or anal)? Yes with Men only Use protection? No Have you ever had a Sexually transmitted disease ? No Last menstrual period 03/25/2020 AUDIT-C (Standard) Question Answer Notes Did you have a drink contain ing alcohol in the past year? Yes How often did you have a dri nk containing alcohol in the past year? 2 to 4 times a month (2 points) How many drinks did you have on a typical day when you were drinking in the past year? 1 or 2 drinks (0 point) How often did you have six o r more drinks on one occasion in the past year? 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 Problem SI - Stress incontinence (85054285) Stress incontinence (female) (male) (N39.3) Active confirmed Problem COVID-19 (758947426) COVID-19 (U07.1) Active confirmed Vital Signs Temperature 97.7 degrees Fahrenheit 10/28/2025 Blood pressure diastolic 72 mm Hg 10/28/2025 Height 61 in 10/28/2025 Blood pressure systolic 108 mm Hg 10/28/2025 Weight 126 lbs 10/28/2025 BMI 23.8 kg/m2 10/28/2025 Encounters Encounter Location Date Provider Diagnosis [address] [place] [address] 09/06/2025 MARCI GUERRERO Encounter for gynecological examination (general) (routine) without abnormal findings Z01.419 ; Encounter for screening mammogram for malignant neoplasm of breast Z12.31 and Stress incontinence (female) (male) N39.3 [address] [place] [address] 10/28/2025 MARCI GUERRERO Noninflammatory diso rder of vulva and perineum, unspecified N90.9 and Leukoplakia of vulva N90.4 [facility] [address] [place] [address] 10/12/2025 MARCI GUERRERO Assessments Encounter Date Diagnosis (ICD Code) Assessment Notes Treatment Notes Treatment Clinical Notes Section Notes 09/06/2025 Encounter for gynecological examination (general) (routine) without abnormal findings (ICD-10 - Z01.419) During the visit, the following areas of concern were addressed: Discussed cervical cancer screening with either cytology alone every 3 years or high risk HPV co-testing every 5 years as per ASCCP guidelines. Advised continued annual pelvic exams. Patient encouraged to increase her level of exercise. SBE technique encouraged/taug ht. Patient reminded when annual mammogram is due. Patient encouraged to keep colon screening up to date. 09/06/2025 Encounter for screening mammogram for malignant neoplasm of breast (ICD-10 - Z12.31) 10/28/2025 Leukoplakia of vulva (ICD-10 - N90.4) Advised to call with any pruritus. 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 No change in appearance since routine ob gyn physician assistant exam. 10/28/2025 Noninflammatory disorder of vulva and perineum, unspecified (ICD-10 - N90.9) No sign of infections, reassurance given. Encouraged to continue regular intake of kefir or yogurt 09/06/2025 Stress incontinence (female) (male) (ICD-10 - N39.3) Recommended Kegels - also discussed PT or surgical referral Plan Of Treatment Pending Test Test Name Order Date MM Digital Screening Mammogram 3D 2024 Next Appt Details Provider Name:MARCI Schofield, 09/12/2026 03:30:00 PM, [address], [place], [address], Insurance Providers Payer Name Payer Address Payer Phone Subscriber Number Group Number Insured Name Patient Relationship to Insured Coverage Start Date Coverage End Date [employer] [place] [address] [place] [address] [id number] ANABEL SCANLON Self - patient is the insured Medical (General) History Medical History History ICD Code COVID-19 U07.1 Generalized anxiety disorder F41.1 Hospitalization History Reason Date(Month/Year) childbirth
--- OUTSIDE RECORDS SUMMARY | 2025-11-15 08:24 | XMS_ITS | Patient Health Record ---
Author Organization [facility] Address [address] [place] [address] Care Team Providers Care Lens Engraver Name Role Phone KARL ALVAREZ md Primary Care Provider KARL Banda Unavailable [phone] Allergies Allergen (clinical drug ingredient) Drug/Non Drug Allergy documented on EMR Reaction Allergy Type Onset Date Status doxycycline Doxycycline sores on tongue, flushed face Drug Allergy Active Reason For Referral No Information Medications Medication SIG (Take, Route, Frequency, Duration) Notes Start Date End Date Status Ambien 5 MG Tablet 1 tab(s) orally once a day at bedtime; Duration: 28 days 12/21/2021 Active PEG-3350 WITH ELECTOLYTES - POWDER FOR RECONSTITUTION 240 ML ORALLY EVERY 15 MINUTES; Duration: 16 DOSE(S) *Please review for potential replacement for e-prescription and drug interaction check* 04/12/2017 Not-Taking Hydrocortisone Valerate 0.2% TAKE DIRECTED APPLIED TO SKIN BID; Duration: 14 DAYS NAME ONLY Conversion from Multum Review and pick correct strength-formulat ion from [employer] options. If intended option is not shown, discontinue and re-order from Quick Search. Active Claritin 10 MG Tablet 1 tab(s) orally once a day Active LORazepam 1 MG Tablet 1 tab(s) orally twice daily as needed for anxiety; Duration: 30 day(s) 01/08/2022 Active Immunizations Vaccine Route Administration Date Status Comme nts TDAP IM Intramuscular 10/27/2012 Administered Social History Tobacco Use: Social History Observation Description Date Details (start date - stop date) Never Smoker NA - NA Social History Tobacco Use: Social Info Question Answer Notes Smoking Are you a: never smoker Additional Details Category Social Info Options Details General Occupation: [employer] asbestos exposure: no Past year's travels: None alcohol use: yes once a week wine 1-2 glasses drug use: no Hobbies/Exercise habits: Bike ri ding, walking, marathons Coffee/Tea/Soda: yes Coffee 1 cup a day Marital Status experience no Living with 3 daughters Pets dog smokers in household no Section Notes: . . . . Problems Problem Type SNOMED Code ICD Code Onset Dates Problem Status W/U Status Risk Notes Problem Dermatitis (728897888) Dermatitis (L30.9) Active confirmed Problem Anxiety (80718119) Anxiety (F41.9) Active confirmed Problem Disorder of kidney and/or ureter (140098923) Renal lesion (N28.9) Active confirmed Problem Insomnia (622755631) Insomnia, unspecified type (G47.00) Active confirmed Problem Age-related osteoporosis (990517332) Osteoporosis, unspecified osteoporosis type, unspecified pathological fracture presence (M81.0) Active confirmed Problem Exposure to COVID-19 (153922775) Exposure to COVID-19 virus (Z20.822) Active confirmed Plan Of Treatment Pending Test Test Name Order Date xr: left knee 4 views 09/05/2021 CBC W/OUT AUTOMATED DIFF 09/05/2021 Future Test Test Name Order Date SARS-CoV-2 RNA, QUAL RT-PCR 11/21/2021 Insurance Providers Payer Name Payer Address Payer Phone Subscriber Number Group Number Insured Name Patient Relationship to Insured Coverage Start Date Coverage End Date [employer] [address] [place] [address] [id number] ANABEL SCANLON Self - patient is the insured 2017 Medical (General) History Medical History History ICD Code anxiety insomnia FAmHx COlon POylps-mother--Colon05/25/17nl -Rec [id number] Surgical History Surgery Date(Month/Year)
[2025-11-15 08:36] VITALS: BP 100/68; PULSE 82; RESP 13; TEMP 36.7; O2SAT 99; BMI 24.2
== END 2025-11-15 09:10 | disposition home or self-care (01) ==
LOC: HO.HMCFM 08:18
PROVIDERS: PCP Physician Assistant Medical; Visit Provider Physician Assistant Medical
DX: Z00.00 Encounter for general adult medical examination without abnormal findings (principal); F41.9 Anxiety disorder, unspecified; E78.00 Pure hypercholesterolemia, unspecified; R79.89 Other specified abnormal findings of blood chemistry; D49.2 Neoplasm of unspecified behavior of bone, soft tissue, and skin

== ENCOUNTER → 2025-11-15 08:17 | Outpatient (BNVA) | payer BC, SELFPAY | PROVIDERS: PCP Physician Assistant Medical; Visit Provider Physician Assistant Medical | DX: Z00.00 Encounter for general adult medical examination without abnormal findings (principal); F41.9 Anxiety disorder, unspecified; E78.00 Pure hypercholesterolemia, unspecified; R79.89 Other specified abnormal findings of blood chemistry; D49.2 Neoplasm of unspecified behavior of bone, soft tissue, and skin; Z79.899 Other long term (current) drug therapy; Z13.31 Encounter for screening for depression; Z13.39 Encounter for screening examination for other mental health and behavioral disorders | CPT/HCPCS: 96127 ==